=== PATIENT | male | born 1955 | race Caucasian/White ===

== ENCOUNTER 2022-03-29 05:33 | Inpatient (IN) ==
[2022-03-29] MEDS ORDERED: VANCOMYCIN INJ 1,000 MG in SODIUM CHLORIDE 0.9% 250 ML IV ONE (06:00)
[2022-03-29] MEDS ORDERED: CLINDAMYCIN INJ 900 MG/50 ML PREMIX IV ONE (06:00)
[2022-03-29] MEDS ORDERED: ACETAMINOPHEN 500 MG TABLET PO ONE (06:58)
[2022-03-29] MEDS ORDERED: FAMOTIDINE 20 MG TABLET PO ONE (06:58)
[2022-03-29] MEDS ORDERED: DIAZEPAM 5 MG TABLET PO ONE (06:58)
[2022-03-29] MEDS ORDERED: GABAPENTIN 400 MG CAPSULE PO ONE (06:58)
[2022-03-29] MEDS: LACTATED RINGERS 1,000 ML IV SCH (07:33)
[2022-03-29] MEDS ORDERED: DEXAMETHASONE 4 MG/1 ML VIAL ONE (08:04)
[2022-03-29] MEDS ORDERED: KETAMINE 500 MG/10 ML VIAL ONE (08:04)
[2022-03-29] MEDS ORDERED: LIDOCAINE 2% 5 ML VIAL ONE (08:04)
[2022-03-29] MEDS ORDERED: DEXMEDETOMIDINE 200 MCG/2 ML VIAL ONE (08:04)
[2022-03-29] MEDS ORDERED: BUPIVACAINE 0.5% 50 ML VIAL ONE (08:49)
[2022-03-29] MEDS ORDERED: buprenorphine HCL 0.3 MG/ML VIAL ONE (08:51)
[2022-03-29] MEDS ORDERED: MIDAZOLAM 2 MG/2 ML VIAL ONE (09:54)
[2022-03-29] MEDS ORDERED: TRANEXAMIC ACID 1,000 MG/10 ML VIAL ONE (10:26)
[2022-03-29] MEDS ORDERED: hydrALAZINE 20 MG/1 ML VIAL ONE (10:32)
[2022-03-29] MEDS ORDERED: SODIUM CHLORIDE 0.9% 1,000 ML IV ONE ×2 (10:37→11:23)
[2022-03-29] MEDS ORDERED: TEMAZEPAM 7.5 MG CAPSULE PO PRN (11:32)
[2022-03-29] MEDS ORDERED: BISACODYL 10 MG SUPP RECTAL PRN (11:32)
[2022-03-29] MEDS ORDERED: diphenhydrAMINE CAP 25 MG CAPSULE PO PRN (11:32)
[2022-03-29] MEDS ORDERED: PROMETHAZINE 25 MG/1 ML VIAL IM PRN (11:32)
[2022-03-29] MEDS ORDERED: MORPHINE 2 MG/1 ML SYRINGE IV PRN ×2 (11:32→11:38)
[2022-03-29] MEDS ORDERED: LACTULOSE 20 GM/30 ML UDCUP PO PRN (11:32)
[2022-03-29] MEDS ORDERED: ONDANSETRON 4 MG/2 ML VIAL IV PRN (11:32)
[2022-03-29] MEDS ORDERED: MAGNESIUM HYDROXIDE SUSP 30 ML UDCUP PO PRN (11:32)
[2022-03-29 12:47] LABS: Bacteria,Urine Occasional /HPF (Few)
[2022-03-29 12:48] LABS: Bilirubin,Urine Negative (Negative); Blood, Urine Negative (Negative); Glucose,Urine (UA) Negative (Negative); Ketones,Urine Negative (Negative); Nitrite,Urine Negative (Negative); Protein,Urine Negative (Negative); Urine Appearance Clear (Clear); Urine Color Yellow (Yellow); Urine Urobilinogen 0.2 eU/dL (<2.0)
[2022-03-29] MEDS: CLINDAMYCIN INJ 900 MG/50 ML PREMIX IV SCH (17:31)
[2022-03-29] MEDS: DOCUSATE SODIUM 100 MG CAPSULE PO SCH (23:10)
[2022-03-30] MEDS: CLINDAMYCIN INJ 900 MG/50 ML PREMIX IV SCH (01:58)
[2022-03-30 05:07] LABS: Basophils % 0.1 % (0.0-0.8); Hematocrit 39.9 VOL% (42.0-52.0); Hemoglobin 13.3 GM/DL (14.0-18.0); Immature Granulocytes % 0.4 %; Immature Granulocytes Absolute 0.05 #; Lymphocytes % 8.6 % (21.2-54.2); Mean Corpuscular HGB Conc 33.3 GM/DL (32-36); Mean Corpuscular Volume 99.8 FL (87-102); Mean Platelet Volume 10.4 FL (9.6-12.0); Monocytes # 1.3 10*3/uL (0.11-0.8); Monocytes % 11.1 % (1.7-12.7); Neutrophils % 79.8 % (38.7-73.9); Platelet Count 215 T/CUMM (130-400); Red Cell Distribution Width 13.4 % (9.3-17.3); White Blood Count 11.3 T/CUMM (4-12)
[2022-03-30 05:33] LABS: Calcium 9.4 MG/DL (8.5-10.1); Osmolality,Calculated 272.8 MOS/KG (273-304); Potassium 4.5 MMOL/L (3.5-5.1)
[2022-03-30] MEDS: LACTATED RINGERS 1,000 ML IV SCH (05:44)
[2022-03-30] MEDS ORDERED: FONDAPARINUX 2.5 MG/0.5 ML SYRINGE SUBCUT SCH ×2 (06:00→09:00)
[2022-03-30] MEDS: DOCUSATE SODIUM 100 MG CAPSULE PO SCH (08:43)
[2022-03-30] MEDS ORDERED: lisinopriL 5 MG TABLET PO SCH (09:00)
[2022-03-30] MEDS ORDERED: MELOXICAM 7.5 MG TABLET PO PRN (09:00)
[2022-03-30] MEDS ORDERED: ACETAMINOPHEN 325 MG TABLET PO PRN (11:33)
[2022-03-30 15:44] VITALS: BP 168/87
== END 2022-03-30 18:15 | disposition home health service (06) | DRG 470 ==
LOC: N.SDSINP 05:33 → N.3E 12:55
PROVIDERS: ADMIT Orthopaedic Surgery; ATTEND Orthopaedic Surgery